=== PATIENT | male | born 1975 | race Caucasian/White ===

== ENCOUNTER 2018-05-30 08:35 | Emergency (ER) | payer BC, OTHER ==
--- NOTE | 2018-05-30 08:53 | ER Document Report ---
ED General - General Chief Complaint: General Weakness Stated Complaint: GENERALIZED WEAKNESS Time Seen by Provider: 05/30/18 08:53 Notes: Patient is a 42-year-old male that presents to the emergency department for chief complaint of polyuria and polydipsia and fatigue. Patient thinks that he has diabetes, although he has no prior history of this. He states over the last few weeks he is having increased thirst, and been drinking a lot more water , and increased urination particularly at night, and overall he has felt fatigued, he denies having any fevers, chills, night sweats, chest pain, shortness of breath, nausea, vomiting or abdominal pain. He states he has gained significant weight over the last few years, is concerned he was getting diabetes. Denies any other complaints at this time. Past Medical History: Denies chronic medical conditions Past Surgical History: Skin surgery Social History: Denies tobacco, alcohol or drug use Family History: Reviewed and noncontributory for presenting illness Allergies: Reviewed, see documented allergy list. REVIEW OF SYSTEMS: Unless otherwise stated in this report the patient's positive and negative responses for review of systems for constitutional, eyes, ENT, cardiovascular, respiratory, gastrointestinal, neurological, genitourinary, musculoskeletal, and integumentary systems and related systems to the presenting problem are either as stated in the HPI or were not pertinent or were negative for the symptoms and/or complaints related to the presenting medical problem. PHYSICAL EXAMINATION: Vital signs reviewed, nursing noted reviewed. GENERAL: Well-appearing, well-nourished and in no acute distress. HEAD: Atraumatic, normocephalic. EYES: Eyes appear normal, extraocular movements intact, sclera anicteric, conjunctiva are normal. ENT: nares patent, oropharynx clear without exudates. Moist mucous membranes. NECK: Normal range of motion, supple without lymphadenopathy LUNGS: Breath sounds clear to auscultation bilaterally and equal. No wheezes rales or rhonchi. HEART: Regular rate and rhythm without murmurs ABDOMEN: Soft, obese, nontender, normoactive bowel sounds. No rebound, guarding , or rigidity. No masses appreciated. EXTREMITIES: Nontender, good range of motion, no pitting or edema. NEUROLOGICAL: No focal neurological deficits. Moves all extremities spontaneously Motor and sensory grossly intact on exam. PSYCH: Normal mood, normal affect. SKIN: Warm, Dry, normal turgor, no rashes or lesions noted on exposed skin TRAVEL OUTSIDE OF THE [place] IN LAST 30 DAYS: No - Related Data Allergies/Adverse Reactions: No Known Allergies Allergy (Verified 05/30/18 08:40) Past Medical History - Social History Smoking Status: Never Smoker Family History: Reviewed & Not Pertinent - Immunizations Hx Diphtheria, Pertussis, Tetanus Vaccination: No Physical Exam - Vital signs Vitals: Temp Pulse Resp BP Pulse Ox 98.6 F 106 H 16 164/99 H 96 05/30/18 08:43 05/30/18 08:43 05/30/18 08:43 05/30/18 08:43 05/30/18 08:43 Course - Re-evaluation Re-evalutation: Patient seen and examined vital signs reviewed. Laboratory data and imaging were ordered as appropriate for the patient's presenting symptoms and complaint, with consideration of any critical or life threatening conditions that may be associated with their obtained history and exam as noted above. Patient was treated with IV fluids Results were reviewed when available and demonstrated hyperglycemia, bicarb was 18, however VBG did not demonstrate acidosis, and patient appeared well, and in no distress, not consistent with DKA The patient was re-evaluated and was stable, repeat blood glucose was 334 Evaluation was most consistent with hyperglycemia, new onset diabetes, will discharge the patient home on metformin, to titrate up to 1000 mg twice daily, and to follow-up with her primary care physician which she is given referral, patient understands this plan of care, and advised if his symptoms worsen, to return to the emergency department if needed. Results were discussed with the patient at this point, after careful consideration I feel that that patient can be discharged from the emergency department, the patient was educated treatments and reasons to return to the emergency department based on their presumed diagnosis as noted above, they were advised to followup with a primary care physician in 2-3 days. Patient was agreeable to plan of care. *Note is created using voice recognition software and may contain spelling, syntax or grammatical errors. Laboratory 05/30/18 05/30/18 05/30/18 09:20 09:20 09:55 WBC 4.9 RBC 5.09 Hgb 16.2 Hct 46.2 MCV 91 MCH 31.9 MCHC 35.1 RDW 13.8 Plt Count 167 Seg Neutrophils % 53.4 Lymphocytes % 31.6 Monocytes % 12.1 Eosinophils % 2.1 Basophils % 0.8 Absolute Neutrophils 2.6 Absolute Lymphocytes 1.5 Absolute Monocytes 0.6 Absolute Eosinophils 0.1 Absolute Basophils 0.0 VBG pH 7.35 VBG pCO2 35.9 VBG HCO3 19.2 L VBG Base Excess -5.6 Sodium 139.5 Potassium 4.3 Chloride 102 Carbon Dioxide 18 L Anion Gap 19 BUN 15 Creatinine 0.88 Est GFR ( Amer) > 60 Est GFR (Non-Af Amer) > 60 Glucose 408 H* Calcium 9.6 Total Bilirubin 1.2 Direct Bilirubin 0.6 H Neonat Total Bilirubin Not Reportable Neonat Direct Bilirubin Not Reportable Neonat Indirect Bili Not Reportable AST 51 ALT 56 Alkaline Phosphatase 118 Total Protein 8.5 H Albumin 4.8 Lipase 48.8 - Vital Signs Vital signs: Temp Pulse Resp BP Pulse Ox 98.3 F 86 18 152/93 H 96 05/30/18 12:07 05/30/18 12:07 05/30/18 12:07 05/30/18 12:07 05/30/18 12:07 - Laboratory Result Diagrams: 05/30/18 09:20 05/30/18 09:20 Laboratory results interpreted by me: 05/30/18 05/30/18 05/30/18 09:20 09:55 10:52 VBG HCO3 19.2 L Carbon Dioxide 18 L Glucose 408 H* POC Glucose 334 H Direct Bilirubin 0.6 H Total Protein 8.5 H - EKG Interpretation by Me Additional EKG results interpreted by me: 05/30/18 11:08 EKG demonstrates sinus rhythm with a ventricular rate of 91 bpm, left axis deviation, normal intervals, no evidence of acute ischemia in this EKG, no prior for comparison. Discharge - Discharge Clinical Impression: Hyperglycemia Diabetes mellitus Qualifiers: Diabetes mellitus type: type 2 Diabetes mellitus residential insulin use: without exterminator use Diabetes mellitus complication status: with hyperglycemia Qualified Code(s): E11.65 - Type 2 diabetes mellitus with hyperglycemia Condition: Stable Disposition: HOME, SELF-CARE Instructions: Diabetes ([facility]) Additional Instructions: Please return to the emergency department if you have any worsening, or concern of your symptoms. Please return to the emergency department if you develop chest pain, difficulty breathing, severe abdominal pain, or ongoing vomiting. Please follow-up with your primary care physician in 2-3 days and any other recommended physicians. If prescribed, take all medications as directed. If you have any questions or concerns do not hesitate to return the emergency department for evaluation. Please take 1/2 tablet twice daily, for the first week, and then increase to 1 tablet twice daily after that, for the Metformin dosing. Prescriptions: Metformin HCl 1,000 mg PO BID #28 tablet Referrals: MAYA PRYOR MD [COMMUNITY BASED STAFF] - Follow up tomorrow [facility] [Provider Group] - Follow up in 3-5 days
[2018-05-30] MEDS ORDERED: NORMAL SALINE 1000 ML 1,000 ML IV ONE (09:04)
[2018-05-30 09:42] LABS: ABSOLUTE EOSINOPHILS # (AUTO) 0.1 10^3/uL (0.0-0.6); ABSOLUTE LYMPHOCYTES (AUTO) 1.5 10^3/uL (0.5-4.7); ABSOLUTE MONOCYTES (AUTO) 0.6 10^3/uL (0.1-1.4); ABSOLUTE NEUT (AUTO) 2.6 10^3/uL (1.7-8.2); BASOPHILS % (AUTO) 0.8 % (0-2); EOSINOPHILS % (AUTO) 2.1 % (0-6); HEMATOCRIT 46.2 % (37.9-51.0); HEMOGLOBIN 16.2 g/dL (13.5-17.0); LYMPHOCYTES % (AUTO) 31.6 % (13-45); MEAN CORPUSCULAR HEMOGLOBIN 31.9 pg (27.0-33.4); MEAN CORPUSCULAR HGB CONC 35.1 g/dL (32.0-36.0); MEAN CORPUSCULAR VOLUME 91 fl (80-97); MONOCYTES % (AUTO) 12.1 % (3-13); PLATELET COUNT 167 10^3/uL (150-450); RED BLOOD COUNT 5.09 10^6/uL (4.35-5.55); RED CELL DISTRIBUTION WIDTH 13.8 % (11.5-14.0); SEGMENTED NEUTROPHILS % (AUTO) 53.4 % (42-78); TOTAL CELLS COUNTED % (AUTO) 100 %; WHITE BLOOD COUNT 4.9 10^3/uL (4.0-10.5)
[2018-05-30 10:15] LABS: VENOUS BLOOD BASE EXCESS -5.6 mmol/L; VENOUS BLOOD HCO3 19.2 mmol/L (20-32); VENOUS BLOOD PCO2 35.9 mmHg (35-63); VENOUS BLOOD PH 7.35 (7.30-7.42)
[2018-05-30 10:27] LABS: ALANINE AMINOTRANSFERASE 56 U/L (21-72); ALBUMIN 4.8 g/dL (3.5-5.0); ALKALINE PHOSPHATASE 118 U/L (38-126); ASPARTATE AMINO TRANSFERASE 51 U/L (17-59); BILIRUBIN,DIRECT 0.6 mg/dL (0.0-0.4); BILIRUBIN,TOTAL 1.2 mg/dL (0.2-1.3); BLOOD UREA NITROGEN 15 mg/dL (7-20); CALCIUM 9.6 mg/dL (8.4-10.2); CARBON DIOXIDE 18 mmol/L (22-30); CHLORIDE 102 mmol/L (98-107); LIPASE 48.8 U/L (23-300); POTASSIUM 4.3 mmol/L (3.6-5.0); SODIUM 139.5 mmol/L (137-145); TOTAL PROTEIN 8.5 g/dL (6.3-8.2)
[2018-05-30 10:39] LABS: ANION GAP 19 (5-19); GLUCOSE 408 mg/dL (75-110)
[2018-05-30 12:12] VITALS: BP 152/93
--- NOTE | 2018-05-30 13:04 | EKG REPORT ---
SEVERITY:- ABNORMAL ECG - SINUS RHYTHM LEFT VENTRICULAR HYPERTROPHY : Confirmed by: Jacob Teran MD 30-May-2018 13:03:49
== END 2018-05-30 12:12 | disposition home or self-care (01) ==
LOC: ER 08:35
DX: E11.65 Type 2 diabetes mellitus with hyperglycemia (principal); R53.1 Weakness; R35.8 Other polyuria; R63.1 Polydipsia; R53.83 Other fatigue
CPT/HCPCS: 93005; 99285; 96360; 96361; 36415; 82010; 82962; 83690; 85025; 80053; 82803; 93010; J7030